=== PATIENT | male | born 1970 | race Caucasian/White ===

== ENCOUNTER 2021-01-23 22:58 | Emergency (ER) | payer BC, OTHER ==
[2021-01-23] MEDS ORDERED: Ibuprofen 600 MG Tab PO ONE (23:12)
[2021-01-23] MEDS ORDERED: Ketorolac 30 MG/ML SDV IM ONE (23:20)
--- NOTE | 2021-01-24 10:13 | EDM.PDOC ---
ED HPI GENERAL MEDICAL PROBLEM - General Chief Complaint: Lower Extremity Injury/Pain Stated Complaint: right ankle pain Time Seen by Provider: 01/23/21 23:05 Source of Information: Reports: Patient History Limitations: Reports: No Limitations - History of Present Illness INITIAL COMMENTS - FREE TEXT/NARRATIVE: Pt. states that he twisted his L ankle the night before. He states that he was able to bear weight, and felt it didn't require medical attention. He states that today, he was on his feet all day at a wedding. He states that the longer he stood on the leg, the more discomfort he had in the joint. Denies any acute numbness or tingling in the extremity. Denies any injury elsewhere. Pt. denies any previous injury to this joint in the past. 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 Left Ankle Pain Score (Numeric/FACES): 7 - Related Data Allergies Allergy/AdvReac Type Severity Reaction Status Date / Time lisinopril Allergy Other Verified 01/23/21 23:00 simvastatin [From Zocor] Allergy Other Verified 01/23/21 23:01 Past Medical History Cardiovascular History: Reports: Hypertension Social & Family History - Tobacco Use Tobacco Use Status *Q: Never Tobacco User Second Hand Smoke Exposure: No - Caffeine Use Caffeine Use: Reports: Soda - Alcohol Use Days Per Week of Alcohol Use: 2 Number of Drinks Per Day: 4 Total Drinks Per Week: 8 - Recreational Drug Use Recreational Drug Use: No Review of Systems - Review of Systems Review Of Systems: See Below Musculoskeletal: Reports: Joint Pain (L lateral and posterior ankle pain and swelling) ED EXAM, GENERAL - Physical Exam Exam: See Below Extremities: Joint Swelling, Limited Range of Motion. No: Mottled, Pallor Course - Vital Signs Last Recorded V/S: Last Vital Signs Temp 36.8 C 01/23/21 23:01 Pulse 114 H 01/23/21 23:01 Resp 16 01/23/21 23:01 BP 146/86 H 01/23/21 23:01 Pulse Ox 96 01/23/21 23:01 - Orders/Labs/Meds Orders: Active Orders 24 hr Category Date Time Status Ankle Min 3V Lt [CR] Stat Exams 01/23/21 23:01 Taken Meds: Medications Discontinued Medications Generic Name Dose Route Start Last Admin Trade Name Delia PRN Reason Stop Dose Admin Ibuprofen 600 mg 01/23/21 23:12 Ibuprofen 600 Mg Tab PO 01/23/21 23:13 ONETIME ONE Ketorolac Tromethamine 30 mg 01/23/21 23:20 01/23/21 23:30 Ketorolac 30 Mg/Ml Sdv IM 01/23/21 23:21 30 mg ONETIME ONE Administration - Radiology Interpretation Free Text/Narrative:: No obvious acute fracture noted. He is noted to have numerous bone spurs to the heels and ankle and degenerative changes, but nothing acute was noted. Departure - Departure Time of Disposition: 00:15 Disposition: Home, Self-Care 01 Clinical Impression: Left ankle sprain - Discharge Information Instructions: Ankle Sprain, [id number], Ibuprofen Oral Tablets and Capsules Forms: ED Department Discharge, ED Return to Work/School Form Additional Instructions: ibuprofen 200mg 3 tabs every 6 hours as needed for discomfort Use RAFAELA wrap for support Stay off of your feet. Elevate foot and leg to decrease swelling. Ice ankle for 10-15 min every hour Sepsis Event Note (ED) - Focused Exam Vital Signs: Vital Signs Temp Pulse Resp BP Pulse Ox 01/23/21 23:01 36.8 C 114 H 16 146/86 H 96 - Problem List Review Problem List Initiated/Reviewed/Updated: Yes - My Orders Last 24 Hours: My Active Orders 01/23/21 23:01 Ankle Min 3V Lt [CR] Stat - Assessment/Plan Last 24 Hours: My Active Orders 01/23/21 23:01 Ankle Min 3V Lt [CR] Stat Plan: ibuprofen 200mg 3 tabs every 6 hours as needed for discomfort Use RAFAELA wrap for support Stay off of your feet. Elevate foot and leg to decrease swelling. Ice ankle for 10-15 min every hour
== END 2021-01-23 23:35 | disposition home or self-care (01) ==
LOC: LL.ED 22:58
DX: S93.402A Sprain of unspecified ligament of left ankle, initial encounter (principal); I10 Essential (primary) hypertension; Z88.8 Allergy status to other drugs, medicaments and biological substances; X50.1XXA Overexertion from prolonged static or awkward postures, initial encounter
CPT/HCPCS: 73610-LT; 96372; 99283; 99283-25; J1885